=== PATIENT | male | born 1955 | race Caucasian/White ===

== ENCOUNTER 2019-11-29 09:51 | Day surgery (SDC) | payer MEDICARE, OTHER ==
[2019-11-29 08:28] LABS: CORONAVIRUS COVID-19 RAPID PCR NEGATIVE (NEGATIVE)
[~2019-11-29 09:51] MED LIST: Midazolam 1 MG/ML 2 ML SDV ONE; Propofol 200 MG/20 ML SDV ONE
[2019-11-29] MEDS ORDERED: Midazolam 1 MG/ML 2 ML SDV IV ONE (09:52)
[2019-11-29] MEDS ORDERED: Propofol 200 MG/20 ML SDV IV ONE (09:52)
[2019-11-29] MEDS ORDERED: Lactated Ringers 1,000 ML IV SCH (10:00)
[2019-11-29] MEDS ORDERED: Sodium Chloride 0.9% 10 ML Syringe FLUSH PRN (10:00)
--- NOTE | 2019-11-29 10:55 | PCM.PN ---
- General Info Date of Service: 11/29/19 - Review of Systems Systems Review Comment:: 64-year-old male here for screening colonoscopy. Patient states that his last colon exam was 15 years ago. He denies any recent change in bowel pattern or rectal bleeding. He has had some difficulty with a thrombosed hemorrhoid recently but this has now resolved. Patient is medically stable to proceed today. His recent history and physical is reviewed. His past medical history, family history, and social history are unchanged. On review of systems the patient has been feeling well. He has not had any change in bowel pattern and is not experiencing any recent chest pain shortness of breath or respiratory symptoms. I have discussed the proposed colonoscopy with the patient. Risks such as but not limited to bleeding and GI injury reviewed. He agrees to proceed. - Patient Data Vitals - Most Recent: Last Vital Signs Temp 96.1 F L 11/29/19 10:00 Pulse 72 11/29/19 10:00 Resp 18 11/29/19 10:00 BP 128/78 11/29/19 10:00 Pulse Ox 96 11/29/19 10:00 Weight - Most Recent: 78.018 kg Lab Results Last 24 Hours: Laboratory Results - last 24 hr 11/29/19 Range/Units 07:38 SARS-CoV-2 RNA (RT-PCR) Negative (NEGATIVE) Med Orders - Current: Current Medications Lactated Ringer's (Ringers, Lactated) 1,000 mls @ 50 mls/hr IV ASDIRECTED SOLE Last Admin: 11/29/19 10:31 Dose: 50 mls/hr Sodium Chloride (Saline Flush) 10 ml FLUSH Q8HR PRN PRN Reason: keep vein open Sepsis Event Note - Focused Exam Vital Signs: Vital Signs Temp Pulse Resp BP Pulse Ox 11/29/19 10:00 96.1 F L 72 18 128/78 96 Date Exam was Performed: 11/29/19 Time Exam was Performed: 10:52 - Problem List Review Problem List Initiated/Reviewed/Updated: Yes - My Orders Last 24 Hours: My Active Orders 11/29/19 10:00 Peripheral IV Care [RC] . DIRECTED Lactated Ringers [Ringers, Lactated] 1,000 ml IV ASDIRECTED Sodium Chloride 0.9% [Saline Flush] 10 ml FLUSH Q8HR PRN Peripheral IV Insertion Adult [OM.PC] Routine 11/29/19 10:30 Patient to Empty Bladder [RC] ASDIRECTED 11/29/19 11:00 Verify Patient Consent Obtain [RC] ASDIRECTED 11/29/19 Breakfast Nothing Per Oral Diet [DIET] - Assessment Assessment:: Colon cancer screening - Plan Plan:: Colonoscopy
--- NOTE | 2019-11-29 11:29 | PCM.OPNOTE ---
- General Post-Op/Procedure Note Date of Surgery/Procedure: 11/29/19 Operative Procedure(s): Colonoscopy Findings: Normal appearing colon Moderate External Hemorrhoids Pre Op Diagnosis: Colon cancer screening Post-Op Diagnosis: Hemorrhoids Anesthesia Technique: MAC Primary Surgeon: Kevan Velásquez Pathology: none EBL in mLs: 0 Complications: None Condition: Good
[2019-11-29 12:20] VITALS: BP 98/61; PULSE 69
--- NOTE | 2019-11-29 14:06 | OR ---
DATE OF SURGERY: 11/29/2019 SURGEON: Kevan Velásquez MD PREOPERATIVE DIAGNOSIS: Colon cancer screening. POSTOPERATIVE DIAGNOSIS: External hemorrhoids. OPERATION PERFORMED: Colonoscopy. INDICATIONS FOR SURGERY: This 64-year-old male is seen today for colonoscopy. It has been 15 years since his last colon exam. FINDINGS: The patient has moderate-sized external hemorrhoids, which do not appear to be acutely inflamed. The patient's colon appears normal. DESCRIPTION OF PROCEDURE: The patient was taken to the operating room. He was given intravenous sedation and with him in the left lateral decubitus position, digital rectal exam was performed showing no rectal masses. The Olympus colonoscope was inserted into the rectum. Retroflexed examination of the rectal canal is performed. The scope was then carefully advanced under direct visualization through the entire length of the colon until the cecum was reached. Cecal acquisition is confirmed by noting normal internal cecal anatomy including the appendiceal orifice and ileocecal valve. The light was also noted to transilluminate the abdominal wall in the right lower quadrant. After examining the cecum, the scope was slowly withdrawn sequentially re-examining the colonic segments until the entire colon and rectum had been fully examined. The scope was then removed and the patient was taken from the operating room in satisfactory condition. ESTIMATED BLOOD LOSS: Zero. COMPLICATIONS: None. PROGNOSIS: Good. /[id number]/MODL
== END 2019-11-29 13:30 | disposition home or self-care (01) ==
LOC: KA.SDS 09:51
PROVIDERS: ATTEND Surgery
DX: Z12.11 Encounter for screening for malignant neoplasm of colon (principal); K64.4 Residual hemorrhoidal skin tags; Z20.828 Contact with and (suspected) exposure to other viral communicable diseases
CPT/HCPCS: 00812; J2250; J2704; J7120; U0002

== ENCOUNTER 2020-07-09 16:30 | Emergency (ER) | payer MEDICARE, OTHER ==
[2020-07-09 17:25] LABS: ANION GAP 15.7 mmol/L (5-15); CHLORIDE,CL 106 mmol/L (98-107); SODIUM,NA 143 mmol/L (136-145)
--- NOTE | 2020-07-09 17:35 | EDM.PDOC ---
ED HPI GENERAL MEDICAL PROBLEM - General Chief Complaint: Drug or Alcohol Abuse Stated Complaint: STROKE SYMPTOMS Time Seen by Provider: 07/09/20 17:06 Source of Information: Reports: Patient, Significant Other History Limitations: Reports: No Limitations - History of Present Illness INITIAL COMMENTS - FREE TEXT/NARRATIVE: Patient brought by for evaluation. At 1530 she found him lying on the floor on some carpet where he had been doing some measuring in a basement room. She saw his glasses placed like he had taken them off intentionally. 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 slept for several hours in bed and patient had slept some on the couch then went downstairs to do some work. Patient had a few drinks of beer and hard liquor but not sure how much. When found him she noticed the alcohol smell. She woke him up and they walked up stairs without difficulty. He was a little unsteady but not off balance or weak. She thought of stroke possibility and had him smile which was normal. says they have a couple drinks quite often but rarely more than that. She remembers only one other time that he had a similar presentation after drinking. Upstairs he lay down on the cough and a little later vomited. They decided to come to get checked out. He takes no medications and denies history of stroke, A Fib, or other heart disease. - Related Data Allergies Allergy/AdvReac Type Severity Reaction Status Date / Time No Known Drug Allergies Allergy Cannot Verified 07/09/20 16:46 Remember Home Meds: Home Meds . [No Known Home Meds] 07/09/20 [History] Past Medical History HEENT History: Reports: Impaired Vision, Other (See Below) Other HEENT History: Tinnitus Gastrointestinal History: Reports: None Musculoskeletal History: Reports: Other (See Below) Other Musculoskeletal History: Clavical Fracture Hematologic History: Reports: Blood Transfusion(s) - Infectious Disease History Infectious Disease History: Reports: Chicken Pox, Measles - Past Surgical History Other HEENT Surgeries/Procedures: implant GI Surgical History: Reports: Colonoscopy Musculoskeletal Surgical History: Reports: Hip Replacement, Joint Replacement Other Musculoskeletal Surgeries/Procedures:: R SCOTTIE 2019, anterior approach Social & Family History - Tobacco Use Tobacco Use Status *Q: Never Tobacco User Second Hand Smoke Exposure: No - Caffeine Use Caffeine Use: Reports: Coffee, Soda - Alcohol Use Days Per Week of Alcohol Use: 7 Number of Drinks Per Day: 3 Total Drinks Per Week: 21 Date of Last Drink: 07/09/20 Time of Last Drink: 10:00 - Recreational Drug Use Recreational Drug Use: No ED ROS GENERAL - Review of Systems Review Of Systems: See Below Constitutional: Denies: Fever, Chills, Weakness HEENT: Denies: Ear Pain, Throat Pain, Vision Change Respiratory: Denies: Shortness of Breath, Cough Cardiovascular: Denies: Chest Pain, Lightheadedness, Syncope GI/Abdominal: Reports: Vomiting (once). Denies: Abdominal Pain : Denies: Dysuria Musculoskeletal: Denies: Neck Pain, Shoulder Pain, Arm Pain, Back Pain, Hand Pain, Leg Pain, Foot Pain Skin: Denies: Cyanosis, Jaundice, Mottled, Pallor, Diaphoresis Neurological: Reports: Confusion (He doesn't remember lying in the basement but is otherwise alert and oriented.). Denies: Headache, Seizure, Trouble Speaking, Difficulty Walking Psychiatric: Denies: Agitation, Anxiety Hematologic/Lymphatic: Denies: Easy Bleeding - Physical Exam Exam: See Below Exam Limited By: No Limitations General Appearance: Alert, WD/WN, No Apparent Distress, Other (noticeable alcohol smell when patient talks) Eye Exam: Bilateral Eye: EOMI, Normal Inspection (full visual flood bilat), PERRL Ears: Normal External Exam, Normal Canal, Hearing Grossly Normal, Normal TMs Nose: Normal Inspection Throat/Mouth: Normal Inspection, Normal Lips, Normal Oropharynx, Normal Voice, No Airway Compromise. No: Evidence of Tongue Biting Head Exam: Atraumatic, Normocephalic Neck: Normal Inspection, Supple, Non-Tender, Full Range of Motion Respiratory/Chest: No Respiratory Distress, Lungs Clear, Normal Breath Sounds, No Accessory Muscle Use Cardiovascular: Regular Rate, Rhythm, No Murmur GI/Abdominal: Normal Bowel Sounds, Soft, Non-Tender, No Organomegaly, No Distention Neuro Exam (Abbreviated): Alert, Oriented, CN II-XII Intact, Normal Cognition, No Motor/Sensory Deficits Back Exam: Normal Inspection, Full Range of Motion Extremities: Normal Inspection, Normal Range of Motion Psychiatric: Normal Affect, Normal Mood, Other (mildly slow, deliberate speach consistent with intoxication but no facial droop or slurring.) Skin Exam: Warm, Dry, Intact, Normal Color, No Rash Course - Vital Signs Last Recorded V/S: Last Vital Signs Temp 97.5 F 07/09/20 17:08 Pulse 58 L 07/09/20 17:16 Resp 14 07/09/20 17:16 BP 111/69 07/09/20 17:16 Pulse Ox 95 07/09/20 17:16 - Orders/Labs/Meds Orders: Active Orders 24 hr Category Date Time Status BASIC METABOLIC PANEL,BMP [CHEM] Stat Lab 07/09/20 16:50 Received ETOH [ETHANOL BLOOD MEDICAL] [CHEM] Stat Lab 07/09/20 16:50 Received Labs: Laboratory Tests 07/09/20 Range/Units 16:50 WBC 5.89 (5.00-10.00) 10^3/uL RBC 4.49 L (4.50-6.00) 10^6/uL Hgb 14.2 (13.0-17.0) g/dL Hct 42.1 (40.0-52.0) % MCV 93.8 H (82.0-92.0) fL MCH 31.6 H (27.0-31.0) pg MCHC 33.7 (32.0-36.0) g/dL RDW 13.0 (11.5-14.5) % Plt Count 218 (150-400) 10^3/uL MPV 9.0 (7.4-10.4) fL Immature Gran % (Auto) 0.2 (0.0-5.0) % Neut % (Auto) 42.0 L (50.0-70.0) % Lymph % (Auto) 38.4 (20.0-40.0) % [place] % (Auto) 12.2 H (2.0-8.0) % Eos % (Auto) 7.0 H (1.0-3.0) % Baso % (Auto) 0.2 (0.0-1.0) % Neut # (Auto) 2.48 L (2.50-7.00) 10^3/uL Lymph # (Auto) 2.26 (1.00-4.00) 10^3/uL [place] # (Auto) 0.72 (0.10-0.80) 10^3/uL Eos # (Auto) 0.41 H (0.10-0.30) 10^3/uL Baso # (Auto) 0.01 (0.00-0.10) 10^3/uL Immature Gran # (Auto) 0.01 (0.00-0.50) 10^3/uL - Re-Assessments/Exams Free Text/Narrative Re-Assessment/Exam: 07/09/20 17:42 Patient and his would like a head CT since the incident was unwitnessed. 07/09/20 17:45 Etoh is 259. Exam is unremarkable. No motor deficits. NIH scale showed possib le slight weakness on left per the nurse. On my exam strength was 5/5 and symmetric in all extremities. 07/09/20 18:[address] shows no acute pathology. Discussed findings and recommendations with luana smith and his . He is discharged to home in stable condition. Departure - Departure Time of Disposition: 18:25 Disposition: Home, Self-Care 01 Condition: Good Clinical Impression: Alcohol intoxication Qualifiers: Complication of substance-induced condition: uncomplicated Qualified Code(s): F10.920 - Alcohol use, unspecified with intoxication, uncomplicated - Discharge Information Instructions: Alcohol Intoxication, [id number] Referrals: Sharifa Marrero PA-C [Primary Care Provider] - Additional Instructions: Drink several glasses of water and eat some food tonight. No work shift tonight. No driving tonight. Follow up with PCP as needed. Sepsis Event Note (ED) - Evaluation Sepsis Screening Result: No Definite Risk - Focused Exam Vital Signs: Vital Signs Temp Pulse Resp BP Pulse Ox 07/09/20 17:16 58 L 14 111/69 95 07/09/20 17:08 97.5 F 62 14 108/74 93 L 07/09/20 16:48 95.5 F L 62 15 136/82 98 - My Orders Last 24 Hours: My Active Orders 07/09/20 16:50 BASIC METABOLIC PANEL,BMP [CHEM] Stat ETOH [ETHANOL BLOOD MEDICAL] [CHEM] Stat - Assessment/Plan Last 24 Hours: My Active Orders 07/09/20 16:50 BASIC METABOLIC PANEL,BMP [CHEM] Stat ETOH [ETHANOL BLOOD MEDICAL] [CHEM] Stat
--- NOTE | 2020-07-09 18:29 | CT ---
[id number] CT/CT Head WO IV EXAM: CT Head WO IV CLINICAL DATA: CHANGE IN MENTAL STATUS COMPARISON: NO PREVIOUS SIMILAR EXAM IS AVAILABLE FOR COMPARISON. FINDINGS: There is no mass or mass effect. There is no hemorrhage or hydrocephalus. There are no extra-axial fluid collections. There are no sites of abnormal attenuation. IMPRESSION: NO PLAIN CT EVIDENCE OF ACUTE INTRACRANIAL PROCESS. Arsen Quiros MD 07/09/20 1121 Thank you for allowing us to participate in the care of your patient.
[2020-07-09 18:47] VITALS: BP 110/74; PULSE 66
== END 2020-07-09 18:45 | disposition home or self-care (01) ==
LOC: KA.ED 16:30
DX: F10.120 Alcohol abuse with intoxication, uncomplicated (principal)
CPT/HCPCS: 70450; 80048; 80307; 85025; 99284; 99285-25